=== PATIENT | female | born 1970 | race Caucasian/White ===

== ENCOUNTER → 2020-11-30 | Outpatient (CLI) | payer BC ==
[~2020-11-30] MED LIST: BLOOD TEST; CEFUROXIME500 MG PO; CIPRO500 MG PO; COZAAR100 MG PO; FERROUS SULFAT325 MG PO; FOLIC ACID1 MG PO; HUMALOG100 UNIT/3 SQ; JANUVIA25 MG PO; K-DUR TAB 20 M20 MEQ PO; LANTUS SOL100 UNIT/1 SQ; MACROBID 100 M100 MG PO; METOPROLOL TART25 MG PO; OMEPRAZOLE40 MG PO; OZEMPIC 2MG/1.5ML INJ; PERCOCET 5-3251 EACH PO; SODIUM BICARBO650 MG PO; TRAZODONE HCL150 MG PO
== END ==
LOC: US 15:00
DX: N13.30 Unspecified hydronephrosis (principal)

== ENCOUNTER → 2020-12-06 | Outpatient (CLI) | payer BC | LOC: OPSV2 09:30 | PROVIDERS: Urology | DX: Z01.818 Encounter for other preprocedural examination (principal) | CPT/HCPCS: 36415; 80048; 93005 ==

== ENCOUNTER → 2020-12-09 | Day surgery (SDC) | payer BC | END | disposition home or self-care (01) | LOC: OR 11-25 12:30 | DX: N39.41 Urge incontinence (principal); R35.0 Frequency of micturition; N32.3 Diverticulum of bladder; I10 Essential (primary) hypertension; E78.5 Hyperlipidemia, unspecified; K21.9 Gastro-esophageal reflux disease without esophagitis; E11.9 Type 2 diabetes mellitus without complications; Z85.528 Personal history of other malignant neoplasm of kidney; Z87.891 Personal history of nicotine dependence; Z87.442 Personal history of urinary calculi; Z90.5 Acquired absence of kidney; Z79.4 Long term (current) use of insulin; Z79.899 Other long term (current) drug therapy | CPT/HCPCS: J0585; J1956; J2001; J2405; J2550; J2704; J3010; J7030; J7040; J7120 ==

== ENCOUNTER → 2021-04-07 | Day surgery (SDC) | payer BC ==
[~2021-04-07] MED LIST changes: +JANUVIA50 MG PO
== END | disposition home or self-care (01) ==
LOC: OR 06:47
DX: N39.41 Urge incontinence (principal); E11.9 Type 2 diabetes mellitus without complications; Z79.4 Long term (current) use of insulin; Z87.891 Personal history of nicotine dependence; Z85.528 Personal history of other malignant neoplasm of kidney; I10 Essential (primary) hypertension; E78.5 Hyperlipidemia, unspecified; K21.9 Gastro-esophageal reflux disease without esophagitis; K76.0 Fatty (change of) liver, not elsewhere classified; D64.9 Anemia, unspecified
CPT/HCPCS: 82962; J0585; J1956; J2250; J2704; J3010; J7030; J7040; J7120

== ENCOUNTER → 2021-09-29 | Outpatient (CLI) | payer BC | LOC: RAD 10:52 | DX: N20.0 Calculus of kidney (principal); R14.3 Flatulence | CPT/HCPCS: 74018 ==

== ENCOUNTER → 2021-11-25 | Outpatient (CLI) | payer BC | LOC: LAB 09:02 | DX: N39.0 Urinary tract infection, site not specified (principal) | CPT/HCPCS: 81001; 87086 ==

== ENCOUNTER 2021-12-07 16:59 | Inpatient (IN) | payer BC ==
[~2021-12-07] VITALS: Ht 157.5 cm; Wt 104.3 kg
[~2021-12-07 16:59] MED LIST changes: +HUMALOG100 UNIT/3 SC; -HUMALOG100 UNIT/3 SQ; -OZEMPIC 2MG/1.5ML INJ; +OZEMPIC1 MG/0.71 SQ
[2021-12-07 18:06] LABS: HEMOGLOBIN 11.1 gm/dl (12.3-15.3); RED BLOOD COUNT 4.09 M/UL (4.00-5.10); WHITE BLOOD COUNT 8.5 K/UL (4.5-11.0)
[2021-12-08 04:11] LABS: HEMOGLOBIN 10.5 gm/dl (12.3-15.3); RED BLOOD COUNT 3.93 M/UL (4.00-5.10)
[2021-12-08] MEDS ORDERED: AMLODIPINE BESYL5 MG PO (10:05)
[2021-12-08] MEDS ORDERED: FLOMAX 0.4 MG0.4 MG PO (10:07)
[2021-12-10 05:55] LABS: HEMOGLOBIN 10.6 gm/dl (12.3-15.3); RED BLOOD COUNT 3.95 M/UL (4.00-5.10); WHITE BLOOD COUNT 7.5 K/UL (4.5-11.0)
== END 2021-12-10 14:20 | disposition home or self-care (01) | DRG 683 ==
LOC: ER1 16:59 → CDU 20:41 → MED SURG 4 20:41
PROVIDERS: Internal Medicine; Internal Medicine Nephrology; Student in an Organized Health Care Education/Training Program; ADMIT Internal Medicine Infectious Disease
DX: N17.9 Acute kidney failure, unspecified (principal); N13.8 Other obstructive and reflux uropathy; N30.00 Acute cystitis without hematuria; Z20.822 Contact with and (suspected) exposure to COVID-19; Q60.0 Renal agenesis, unilateral; E11.22 Type 2 diabetes mellitus with diabetic chronic kidney disease; N13.6 Pyonephrosis; I12.9 Hypertensive chronic kidney disease with stage 1 through stage 4 chronic kidney disease, or unspecified chronic kidney disease; Z96.0 Presence of urogenital implants; Z85.53 Personal history of malignant neoplasm of renal pelvis; Z90.5 Acquired absence of kidney; Z83.3 Family history of diabetes mellitus; Z98.891 History of uterine scar from previous surgery; Z90.49 Acquired absence of other specified parts of digestive tract; Z79.4 Long term (current) use of insulin
CPT/HCPCS: 36415; 80048; 80053; 81001; 82436; 83036; 83735; 84133; 84300; 84439; 84443; 85025; 87086; 96365; 96372; 96374; 96375; 96376; 99285; G0378; J1644; J2405; J2543; J3475; J7030; P9047; U0002

== ENCOUNTER → 2021-12-14 | Outpatient (CLI) | payer BC ==
[~2021-12-14] MED LIST changes: +AMLODIPINE BESYL5 MG PO; +FLOMAX 0.4 MG0.4 MG PO
== END ==
LOC: LAB 07:50
PROVIDERS: Internal Medicine Infectious Disease
DX: N17.9 Acute kidney failure, unspecified (principal)
CPT/HCPCS: 36415; 80048